=== PATIENT | female | born 1985 | race Caucasian/White ===

== ENCOUNTER 2019-09-27 05:55 | Emergency (ER) | payer SELFPAY ==
[~2019-09-27] VITALS: Ht 160 cm; Wt 62.6 kg
[2019-09-27 06:06] VITALS: BP 117/70
--- NOTE | 2019-09-27 06:15 | NUR ---
[facility] DAILY EVALUATED AND ASSESSED PT.
--- NOTE | 2019-09-27 06:19 | NUR ---
COLLECTED COVID SWAB AND GIVEN TO PHLEB TECH.
[2019-09-27 06:24] VITALS: BP 117/70
--- NOTE | 2019-09-28 18:25 | NUR ---
COVID RESULTS RECEIVED FROM LAB. COVID RESULTS- POSITIVE. HARD COPY REQUESTED FROM LAB. COPY OF RESULT PLACED IN INFECTION CONTROL'S MAILBOX.
== END 2019-09-27 06:24 | disposition home or self-care (01) ==
LOC: MED 05:55
DX: U07.1 COVID-19 (principal)
CPT/HCPCS: 99283; U0003